=== PATIENT | male | born 1945 | race Caucasian/White ===

== ENCOUNTER → 2018-12-04 | Outpatient (CLI) | payer BC ==
--- NOTE | 2018-12-06 00:02 | MR ---
EXAMINATION TYPE: MR knee LT wo con DATE OF EXAM: 12/04/2018 COMPARISON: None HISTORY: Pain in left knee TECHNIQUE: Multiplanar, multisequence imaging of the left knee is performed without IV contrast. FINDINGS: The medial and lateral menisci appear fairly normal. There is minimal increased signal within the sub stance of the posterior horn medial meniscus. Joint spaces are fairly normal. 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 There is some small knee joint effusion. The collateral ligaments are intact. There is subcutaneous edema around the lateral aspect of the proximal tibia. I see no foc al bony destructive process. Patellofemoral joint appears intact.. IMPRESSION: There is minimal intrasubstance tear of the posterior horn medial meniscus without extension to the a rticular surface. Small knee joint effusion. Normal joint spaces. No evidence of ligamentous tear. Mild lateral soft ti ssue swelling.
== END | disposition home or self-care (01) ==
LOC: RADMRIMAIN 09:16
PROVIDERS: ATTEND Orthopaedic Surgery
DX: M23.322 Other meniscus derangements, posterior horn of medial meniscus, left knee (principal); M79.89 Other specified soft tissue disorders

== ENCOUNTER → 2021-08-08 | Outpatient (CLI) | payer BC ==
[2021-08-08 14:55] LABS: Basophils # (A) 0.07 X 10*3/uL (0.00-0.10); Eosinophils # (A) 0.18 X 10*3/uL (0.04-0.35); Eosinophils % (A) 2.5 %; HCT 44.5 % (39.6-50.0); HGB 14.3 g/dL (13.0-17.0); Immature Grans, Automated 0.3 %; Lymphocytes # (A) 1.59 X 10*3/uL (0.90-5.00); Lymphocytes % (A) 22.2 %; MCH 30.6 pg (27.0-32.0); MCHC 32.1 g/dL (32.0-37.0); MCV 95.1 fL (80.0-97.0); Mean Platelet Volume 9.6 fL (9.5-12.2); Monocytes # (A) 0.77 X 10*3/uL (0.20-1.00); Monocytes % (A) 10.8 %; NRBC Per 100 WBC 0 /100 WBCS (0.0-0.0); Neutrophils # (A) 4.52 X 10*3/uL (1.80-7.70); Neutrophils % (A) 63.2 %; Platelet Count 263 X 10*3/uL (140-440); RBC 4.68 X 10*6/uL (4.40-5.60); RDW 12.6 % (11.5-14.5); WBC 7.15 X 10*3/uL (4.50-10.00)
[2021-08-08 15:28] LABS: African American GFR (CKD) 71.8 (60.0-200.0); Anion Gap 8.6 mmol/L (10.00-18.00); BUN/Creat Ratio 8.18 Ratio (12.00-20.00); Blood Urea Nitrogen 9.2 mg/dL (9.0-27.0); Calcium 9.9 mg/dL (8.7-10.3); Carbon Dioxide 27.6 mmol/L (20.0-27.5); Non-African American GFR(CKD) 61.9 (60.0-200.0); Potassium 4.7 mmol/L (3.5-5.5)
== END | disposition home or self-care (01) ==
LOC: LABPAT 09:21
PROVIDERS: ATTEND Urology
DX: Z01.812 Encounter for preprocedural laboratory examination (principal); N20.0 Calculus of kidney
CPT/HCPCS: 80048; 85025; 87086

== ENCOUNTER → 2021-10-22 | Outpatient (CLI) | payer BC ==
--- NOTE | 2021-10-22 13:37 | XR ---
KUB HISTORY: N 20.0 calculus, left kidney stone Frontal KUB submitted and correlated prior KUB 08/15/2021, CT 08/11/2021 Scoliotic curvature of the lumbar spine with degenerative disc changes again noted, surgical clips ag ain seen in the right upper quadrant. There are dense vascular calcifications. The calcifications see n on prior exam in the left paraspinal location are not seen definitively. There is overlying bowel g as. Surgical clip present in the L5 level the left midline are again seen. IMPRESSION: Interval treatment changes
== END | disposition home or self-care (01) ==
LOC: RADXRMAIN 10:30
PROVIDERS: ATTEND Urology
DX: N20.0 Calculus of kidney (principal)
CPT/HCPCS: 74018

== ENCOUNTER → 2021-10-30 | Outpatient (CLI) | payer BC ==
--- NOTE | 2021-10-30 15:19 | US ---
EXAMINATION TYPE: US kidneys/renal and bladder DATE OF EXAM: 10/30/2021 COMPARISON: NONE CLINICAL HISTORY: N20.0 CALCULUS OF KIDNEYS. Left renal stone that was lithotripsied 08/2021 EXAM MEASUREMENTS: Right Kidney: 9.0 x 4.3 x 5.6 cm Left Kidney: 10.0 x 3.4 x 5.0 cm Right Kidney: No hydronephrosis or masses seen Left Kidney: No hydronephrosis or masses seen Bladder: wnl There is no evidence for hydronephrosis at this point in time. No nephrolithiasis is seen. No bella s are identified. The urinary bladder is anechoic. Bilateral ureteral jets are seen. IMPRESSION: Unremarkable study
== END | disposition home or self-care (01) ==
LOC: RADUSWWP 14:34
PROVIDERS: ATTEND Urology
DX: N20.0 Calculus of kidney (principal)
CPT/HCPCS: 76770